=== PATIENT | female | born 1980 ===

== ENCOUNTER → 2024-08-03 10:21 | Outpatient (BNVA) | payer BC, OTHER, SELFPAY | PROVIDERS: Visit Provider Student in an Organized Health Care Education/Training Program | DX: S46.912A Strain of unspecified muscle, fascia and tendon at shoulder and upper arm level, left arm, initial encounter (principal); X58.XXXA Exposure to other specified factors, initial encounter; M75.22 Bicipital tendinitis, left shoulder | CPT/HCPCS: 73030 ==

== ENCOUNTER → 2024-11-07 13:54 | Outpatient (BNVA) | payer OTHER, BC, SELFPAY | PROVIDERS: Visit Provider Student in an Organized Health Care Education/Training Program | DX: M25.532 Pain in left wrist (principal); S46.912A Strain of unspecified muscle, fascia and tendon at shoulder and upper arm level, left arm, initial encounter; M25.512 Pain in left shoulder; X58.XXXA Exposure to other specified factors, initial encounter; Y99.0 Civilian activity done for income or pay | CPT/HCPCS: 73110 ==

== ENCOUNTER 2024-11-07 14:56 | Outpatient (CLI) | payer OTHER, BC, SELFPAY | END 2024-11-07 14:57 | disposition home or self-care (01) | LOC: SPT 14:57 | PROVIDERS: Visit Provider Student in an Organized Health Care Education/Training Program | DX: Z46.89 Encounter for fitting and adjustment of other specified devices (principal); S69.92XD Unspecified injury of left wrist, hand and finger(s), subsequent encounter; S63.502D Unspecified sprain of left wrist, subsequent encounter; X58.XXXD Exposure to other specified factors, subsequent encounter | CPT/HCPCS: L3908 ==

== ENCOUNTER 2024-11-23 07:12 | Outpatient (CLI) | payer OTHER, SELFPAY ==
--- NOTE | 2024-11-23 07:14 | MR_ITS ---
WS: [id number] MRI LEFT SHOULDER ARTHROGRAM TECHNIQUE: Sagittal T2, coronal T1, T2 and proton density imaging. Axial gradient PDE imaging. Post arthrogram imaging CLINICAL INFORMATION: left shoulder injury FINDINGS: Moderate degenerative arthritis at the AC joint with small amount of fluid and edema. Slight subacromial spurring. Mild narrowing of the subacromial space. Slight impingement distal supraspinatus. Small amount of subacromial and subdeltoid fluid. Tendinopathy distal supraspinatus. Tiny intrasubstance tear involving the distal supraspinatus 8 mm proximal to the insertion. Normal infraspinatus. Normal teres minor. Subscapularis tendon is normal. Normal biceps tendon in the bicipital groove. Trace fluid in the subcoracoid bursa. Intra-articular biceps tendon appears intact. Biceps labral anchor appears intact. Normal bone marrow signal in the humerus and glenoid. Post arthrogram images demonstrate intact glenoid labrum. Glenohumeral ligaments are intact. No other acute findings. MR/MR shoulder LT wo/w con [id number] IMPRESSION: 1. Moderate degenerative narrowing AC joint with small amount of fluid and tobi ma. Slight subacromial spurring. 2. Impingement distal supraspinatus with tendinopathy and a small distal intra substance tear. 3. Rotator cuff is otherwise intact. 4. Normal biceps tendon in the bicipital groove. 5. Normal glenoid labrum.
--- NOTE | 2024-11-23 07:15 | MR_ITS ---
WS: [id number] EXAMINATION: MR wrist LT wo con* [id number] ORDER DATE: 11/23/2024 7:18 AM COMPARISON: None. HISTORY: left wrist pain/injury CONTRAST: None. TECHNIQUE: Axial T1, axial T2 fat sat, coronal T1, coronal proton density fat sat, coronal STIR, coronal 3D, and sagittal T1 performed. FINDINGS: Normal bone marrow signal in the distal radius and ulna. Slight ulna minus variance. Mild degenerative narrowing at the radiocarpal articulation. Normal bone marrow signal in the scaphoid and lunate. Slight subchondral cystic changes in the proximal and distal carpal row. High-grade tear ulnar aspect TFCC with associated fluid and edema. This involves the ulnocarpal ligaments with fluid and edema extending along the ulnar collateral ligament and extensor carpi ulnaris tendon sheath. Ulnar styloid appears intact. Enteric stents to the ulnar styloid. No fluid in the DRUJ. Tenosynovitis involving the extensor carpi ulnaris. Palmar subluxation of the ECU compatible with subsheath stripping injury. Tenosynovitis involving the extensor carpal radialis brevis tendon and extensor carpi radialis longus tendons MR/MR wrist LT wo con* [id number] IMPRESSION: 1. High-grade of the ulnar aspect TFCC with associated fluid and edema extendi ng along the ulnar collateral ligament and extensor carpi ulnaris tendon sheath . 2. No significant fluid in the DRUJ. 3. Ulnar minus variance. 4. Tenosynovitis involving the extensor carpi ulnaris. Extensor carpi ulnaris is subluxed compatible with subsheath stripping injury. Palmar subluxation of t he ECU. 5. Tenosynovitis involving the extensor carpal radialis brevis tendon and exte nsor carpi radialis longus tendons 6. No other acute findings.
--- NOTE | 2024-11-23 08:00 | IR_ITS ---
WS: [id number] SHOULDER ARTHROGRAM LEFT Fluoroscopic guided left shoulder arthrogram CLINICAL INFORMATION: left shoulder injury PROCEDURE: The procedure including risks, benefits and complications were discussed with the patient, who agreed to proceed. Using sterile technique, the patient was prepped and draped in the usual sterile fashion. After 1% lidocaine injection using fluoroscopic guidance, a 22-gauge spinal needle was advanced into the glenohumeral joint. Approximately 13 ml of a solution containing 10 ml normal saline, 5 ml Omnipaque 240, 5 ml 1% lidocaine, and 0.1 ml gadolinium was administered. No immediate complications. FLUOROSCOPY TIME: 2min [id number] # of spot films: 1 IR/IR arthrogram shoulderLT [id number] IMPRESSION: Uncomplicated fluoroscopic-guided left shoulder arthrogram. MRI to follow.
--- NOTE | 2024-11-23 08:38 | CT_ITS ---
WS: [email or web address] NONCONTRAST CT LEFT SHOULDER TECHNIQUE: Noncontrast CT LEFT shoulder with coronal and sagittal reformatted images. CLINICAL INFORMATION: M25.519 - Pain in unspecified shoulder DLP: 335.[address] scans at [facility] use at least one of these dose optimization techniques: automated exposure control; mA and/or kV adjustment per patient size (includes targeted exams where dose is matched to clinical indication); or iterative reconstruction. FINDINGS: Mild to moderate degenerative narrowing AC joint. Mild downsloping acromion with mild narrowing of the subacromial space. No acute fractures. Normal humeral head and glenoid. Distal clavicle is normal in appearance. Normal sternal clavicular joint. No evidence of dislocation. Normal glenoid rim and coracoid. Scapula is normal in appearance. Mild degenerative narrowing of the glenohumeral articulation. Visualized LEFT lung is well aerated. CT/CT shoulder LT wo con* [id number] IMPRESSION: Mild degenerative changes AC joint and glenohumeral joint. No other acute findi ngs.
[2024-11-23] MEDS: gadobenate dimeglumine 20 mL vial IV (09:51)
[2024-11-23] MEDS: iohexol 240 mg/mL 50 mL Btl 20 ML INTRA-ARTI (09:53)
== END 2024-11-23 07:13 | disposition home or self-care (01) ==
PROVIDERS: PCP Family Medicine; Visit Provider Student in an Organized Health Care Education/Training Program
DX: S43.205A Unspecified dislocation of left sternoclavicular joint, initial encounter (principal); S69.92XA Unspecified injury of left wrist, hand and finger(s), initial encounter; S46.912A Strain of unspecified muscle, fascia and tendon at shoulder and upper arm level, left arm, initial encounter; M75.20 Bicipital tendinitis, unspecified shoulder; S46.112A Strain of muscle, fascia and tendon of long head of biceps, left arm, initial encounter; M25.512 Pain in left shoulder; M19.012 Primary osteoarthritis, left shoulder; X58.XXXA Exposure to other specified factors, initial encounter; R93.6 Abnormal findings on diagnostic imaging of limbs; M19.032 Primary osteoarthritis, left wrist; S63.592A Other specified sprain of left wrist, initial encounter; M65.942 Unspecified synovitis and tenosynovitis, left hand
CPT/HCPCS: 23350; 73200; 73221; 73223; 77002

== ENCOUNTER 2025-04-24 14:15 | Outpatient (CLI) | payer OTHER, SELFPAY | END 2025-04-24 14:16 | disposition home or self-care (01) | LOC: LAB 14:18 | PROVIDERS: PCP Family Medicine | DX: S46.012D Strain of muscle(s) and tendon(s) of the rotator cuff of left shoulder, subsequent encounter (principal); X58.XXXD Exposure to other specified factors, subsequent encounter | CPT/HCPCS: 36415; 85651; 86140 ==